=== PATIENT | male | born 1955 | race Caucasian/White ===

== ENCOUNTER → 2019-10-08 | Outpatient (CLI) | payer BC | END | disposition home or self-care (01) | LOC: LABWHC1 15:15 | PROVIDERS: ATTEND Family Medicine | DX: Z20.828 Contact with and (suspected) exposure to other viral communicable diseases (principal) | CPT/HCPCS: U0003; C9803 ==

== ENCOUNTER → 2020-01-23 | Day surgery (SDC) | payer BC ==
[2020-01-21 17:42] VITALS: BMI 32.3
[~2020-01-23] MED LIST: ALPRAZolam 0.25 MG TAB PO PRN; ALPRAZolam 0.5 MG TAB PO PRN; ASPIRIN 325 MG TAB PO STA; ATORVASTATIN 80 MG TAB PO STA; HEPARIN SODIUM 1,000 UN/ML (10ML VL) IV ONE; HEPARIN SODIUM 1,000 UN/ML (10ML VL) ONE; INSULIN NPH HUMAN ISOPHANE 100 UNIT/ML SQ SCH; INSULIN REGULAR 100 UNIT/ML VIAL SQ SCH; INSULN SQ SCH; IOPAMIDOL-370 100ML BTL INJ ONE; LIDOCAINE 1% INJ 10MG/ML (20 ML MDV) ONE; LIDOCAINE 1% INJ 10MG/ML (20 ML MDV) SQ ONE; METOPROLOL TARTRATE 12.5 MG TAB PO SCH; MIDAZOLAM 2 MG/2 ML VIAL IV ONE; MULTIVITAMINS, THERA 1 EACH TAB PO SCH; NITROGLYCERIN SL TABS 0.4 MG TAB SUBLINGUAL PRN; NON FORMULARY DRUG (Rosuvastatin 20 MG Tablet) PO SCH; SODIUM CHLORIDE 0.9% 1,000 ML IV ONE; SODIUM CHLORIDE 0.9% 1,000 ML IV SCH; SODIUM CHLORIDE 0.9% 1,000 ML in EMPTY BAG 1 BAG IV ONE; VERAPAMIL 2.5 MG/ML 2 ML AMP ONE; [UNRECOGNIZED DRUG - OTHER] SQ SCH; lisinopriL 20 MG TAB PO SCH
[2020-01-23 07:03] LABS: Glucose,Whole Blood 246 mg/dL (75-99)
[2020-01-23 07:10] VITALS: RESP 16; TEMP 98.1
[2020-01-23] MEDS: VERAPAMIL SYRINGE (5 MG/10 ML) INTRAARTER ONE ×2 (07:42→08:17)
--- NOTE | 2020-01-23 11:08 | CC ---
CARDIAC CATHETERIZATION REPORT DATE OF SERVICE: 01/23/2020 PROCEDURE: Left heart catheterization and coronary angiography. PERFORMED BY: Dr. De Alegre. Moderate conscious sedation time was 30 minutes. The patient was administered Versed. Oxygen saturation, hemodynamics and EKG were monitored closely. 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 He has type 2 diabetes, hypertension, and borderline elevation of creatinine. Because of an abnormal stress test with inferior reversible defect and a mid anterior wall partially reversible defect, he was advised cardiac cath after due discussion regarding risks, benefits, and options. PROCEDURE NOTE: Under local anesthesia and strict aseptic precautions, a 6-Panamanian introducer was placed in the right radial artery. There was a considerable difficulty advancing the introducer because of what seemed to be like a tight skin and also probably some spasm. I had used a JL3.4 and a JR4 catheter, with this I performed coronary angiography and also used the same right catheter to check LV pressures but did not do an LV gram. The catheters were taken out and while I was taking the sheath out, he had intense spasm requiring additional verapamil through the sheath and also I advanced a wire and then over the wire and a 4-Panamanian introducer and with some manipulation, I was able to finally take the sheath out. Considerable difficulty was noted. Excellent hemostasis was secured with saturation in the fingers of the right hand of 97%. Patient tolerated the procedure well without complication. Moderate conscious sedation time was 30 minutes. CARDIAC CATHETERIZATION FINDINGS: Left ventricular end-diastolic pressure was about 10 mmHg without any gradient across the aortic valve. CORONARY ANGIOGRAPHY FINDINGS: RIGHT CORONARY ARTERY: Large dominant vessel. No significant disease, distally bifurcates into PDA and PLV. The PLV has a 30% narrowing. No significant disease in the very dominant RCA that also gives off a large acute marginal branch that runs in the PDA distribution. There is also a large conus branch proximally. No significant disease in the dominant RCA. LEFT MAIN CORONARY ARTERY: This is a short patent disease-free vessel that immediately bifurcates into LAD and circumflex. Left main has mild calcification. LEFT ANTERIOR DESCENDING CORONARY ARTERY: This vessel is moderately calcified in its proximal 1/3. In the proximal portion, there is an eccentric area of about 40% narrowing which I looked at in multiple different views. There is no significant lesion, 40% proximal LAD lesion after which the caliber of the vessel improves and it gives off a large diagonal branch and several septal branches runs all the way to the apex and curves over the apex to supply the inferoapical portion of left ventricle. The proximal half of the LAD has moderate calcification. The lesion in the LAD, the proximal portion is about 40%, which I had viewed in multiple views. There is moderate calcification in that area. LEFT POSTERIOR CIRCUMFLEX CORONARY ARTERY: Technically nondominant vessel, gives off a high first obtuse marginal that has diffuse disease in it. This is unchanged from before, the first circumflex and continues as an obtuse marginal laterally, gives off 2 additional branches. Minor irregularities. No significant disease in the nondominant circumflex. Left ventriculogram was not performed. FINAL IMPRESSION: This patient has a normal filling pressures. No significant gradient across aortic valve. A right-dominant system. No significant disease in RCA or circumflex. LAD n the proximal portion is moderate to heavily calcified, has a 40% lesion, but no other significant disease. LV gram was not performed. RECOMMENDATIONS: Findings were discussed with the patient and his . I am recommending continued medical therapy with risk factor modification. He does not have any significant lesion that would require intervention. He will be discharged later on today if he remains stable. MMODL / IJN: [id number] /
[2020-01-23 20:20] VITALS: BP 152/69; PULSE 60
--- NOTE | 2020-01-25 10:25 | CDI ---
Date: 01.25.2020 CDS/Advertising Photographer Name: Bonita Kate Phone: If any questions, call Yoanna Glover Service Dispatcher at [phone] Patient Name: Tramaine Hays Admit Date 01.23.20 Discharge Date: 01.23.20 ATTENTION: The [facility] Coding Staff appreciate your assistance in clarifying documentation. Please respond to the clarification below the line at the bottom and electronically sign. The [facility] Coding staff will review the response and follow-up if needed. Please note: Queries are made part of the Legal Health Record. If you have any questions, please contact the Service Dispatcher. Dear Dr. Alegre In order to code to the greatest specificity and for the greatest reimbursement I need the following information: In you H&P under HPI you document DM 1, under problem list you document DM 2, then under impression/plan you document DM1. In you Cath report you document DM 2 Please clarify whether pt has DM type 1 or DM type 2. Thank you for your kind consideration. DM type 1 MTDD
== END ==
LOC: CATHCVL 06:29
PROVIDERS: ATTEND Internal Medicine Interventional Cardiology
DX: I25.110 Atherosclerotic heart disease of native coronary artery with unstable angina pectoris (principal); R94.39 Abnormal result of other cardiovascular function study; R07.89 Other chest pain; E10.9 Type 1 diabetes mellitus without complications; I10 Essential (primary) hypertension; I49.3 Ventricular premature depolarization; E78.2 Mixed hyperlipidemia; R94.4 Abnormal results of kidney function studies; Z79.899 Other long term (current) drug therapy; Z79.4 Long term (current) use of insulin; Z79.82 Long term (current) use of aspirin; Z82.49 Family history of ischemic heart disease and other diseases of the circulatory system
CPT/HCPCS: 93458; C1769; C1894; J2250; J2001; J1644; Q9967

== ENCOUNTER 2021-01-29 05:52 | Day surgery (SDC) | payer BC ==
[2021-01-29] MEDS ORDERED: ALPRAZolam 0.25 MG TAB PO PRN (05:55)
[2021-01-29] MEDS ORDERED: HEPARIN SODIUM,PORCINE 10,000 UNIT in SODIUM CHLORIDE 0.9% 1,000 ML IRRIGATION PRN (05:55)
[2021-01-29] MEDS ORDERED: NITROGLYCERIN SL TABS 0.4 MG TAB SUBLINGUAL PRN ×2 (05:55→09:19)
[2021-01-29] MEDS ORDERED: HEPARIN SODIUM,PORCINE 2,500 UNIT in SODIUM CHLORIDE 0.9% 250 ML IRRIGATION PRN (05:55)
[2021-01-29] MEDS ORDERED: ALPRAZolam 0.5 MG TAB PO PRN (05:55)
[2021-01-29] MEDS: SODIUM CHLORIDE 0.9% 1,000 ML in EMPTY BAG 1 BAG IV SCH ×2 (06:20→16:54)
[2021-01-29 06:24] LABS: Glucose,Whole Blood 115 mg/dL (75-99)
[2021-01-29] MEDS ORDERED: ASPIRIN 325 MG TAB PO ONE (07:00)
[2021-01-29] MEDS ORDERED: LIDOCAINE 1% INJ 10MG/ML (20 ML MDV) ONE (07:06)
[2021-01-29] MEDS ORDERED: HEPARIN SODIUM 1,000 UN/ML (10ML VL) ONE ×2 (07:24→08:54)
[2021-01-29] MEDS ORDERED: LIDOCAINE 1% INJ 10MG/ML (20 ML MDV) SQ ONE (07:29)
[2021-01-29] MEDS ORDERED: fentaNYL (PF) 50 MCG/ML 2 ML AMP ONE (07:29)
[2021-01-29] MEDS ORDERED: MIDAZOLAM 2 MG/2 ML VIAL IV ONE (07:30)
[2021-01-29] MEDS ORDERED: fentaNYL (PF) 50 MCG/ML 2 ML AMP IV ONE (07:30)
[2021-01-29] MEDS ORDERED: IOPAMIDOL-370 100ML BTL INJ ONE ×3 (07:56→08:58)
[2021-01-29] MEDS ORDERED: HYDROmorphone 0.5 MG/0.5 ML SYRINGE IVP ONE (08:05)
[2021-01-29] MEDS ORDERED: TICAGRELOR 90 MG TAB ONE (08:09)
[2021-01-29] MEDS ORDERED: TICAGRELOR 90 MG TAB PO ONE (08:15)
[2021-01-29] MEDS ORDERED: ZOLPIDEM 5 MG TAB PO PRN (09:19)
[2021-01-29] MEDS ORDERED: ATROPINE SULFATE 0.1 MG/ML 10ML SYRINGE IV PRN (09:19)
[2021-01-29] MEDS ORDERED: RX INFO: IV CONTRAST WAS GIVEN 1 EACH MISC MISCELLANE PRN (09:19)
[2021-01-29] MEDS ORDERED: MAG HYDROX/AL HYDROX/SIMETH 30 ML CUP PO PRN (09:19)
[2021-01-29] MEDS ORDERED: HYDROmorphone 0.5 MG/0.5 ML SYRINGE IVP STA (09:42)
--- NOTE | 2021-01-29 10:13 | CC ---
CARDIAC CATHETERIZATION REPORT DATE OF SERVICE: 01/29/2021. PROCEDURE: 1. Left heart catheterization and coronary angiography. 2. PTCA and stenting of a complex mid LAD and diagonal bifurcation lesion with provisional stenting. 3. Fractional flow reserve/IFR assessment of LAD. PERFORMED BY: Dr. De Alegre. SEDATION: Moderate conscious sedation time was 1 hours 49 minutes. Patient was administered Versed, fentanyl and Dilaudid. Oxygen saturation, hemodynamics and EKG were monitored closely. 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 Because of symptoms strongly suggestive of angina, I advised cardiac catheterization and possible PCI. I was concerned that the mid LAD lesion of 40% with calcification could be the culprit. He was brought in for the procedure electively after due discussion regarding risks, benefits, and options. PROCEDURE NOTE: Under local anesthesia and strict aseptic precautions, a 6-Wolof introducer was placed in the right femoral artery. Using standard right Shiva catheter, I performed selective coronary angiography of the RCA. A pigtail catheter was used to check LV pressures and I then used a guide catheter of JL4 guide catheter to perform selective coronary angiography of the left system. I noted that he had a 95% mid LAD lesion and went ahead and performed PCI. Following the procedure of PCI, I tried to take the sheath out and place an Angio-Seal. There was a lot of calcification and I had difficulty advancing the Angio-Seal and therefore I went back and placed a 6- Wolof introducer and sutured it in and we will do a manual pull in 2 hours and ACT was 247 at the conclusion of the procedure. The details of the procedure including the results and bifurcation stenting was explained to the patient and in detail. I expect he will be discharged tomorrow if he remains stable. Patient received intravenous heparin and ACT was kept between 250 and 300 for the most part. Final ACT was 247. He also received 180 mg of Brilinta orally. CARDIAC CATHETERIZATION FINDINGS: Left ventricular end-diastolic pressure was about 14-15 mmHg without any gradient across aortic valve. RIGHT CORONARY ARTERY: Dominant vessel. Minor irregularities, moderate calcification, mid lesion of 35%, distally bifurcates into PDA and PLV. PDA and PLV have minor diffuse disease but no significant obstruction and this is a very dominant RCA. LEFT MAIN CORONARY ARTERY: Short patent disease-free vessel that immediately bifurcates into LAD and circumflex. LEFT ANTERIOR DESCENDING CORONARY ARTERY: Good caliber vessel extends along the anterior wall. It gives off a small septal and diagonal branch proximally and then there is an area of 95% narrowing in the LAD and right after the stenosis is a diagonal branch that comes off which has a 60% to 70% narrowing unit at the ostium. The LAD beyond the 95% obstruction is of fair caliber, but the vessel tapers down and it supplies a sizable amount of myocardium and runs all the way distally. LEFT POSTERIOR CIRCUMFLEX CORONARY ARTERY: Nondominant vessel has minor irregularities no significant disease and no more than 30% narrowing distally bifurcates into 2 branches. LEFT VENTRICULOGRAM was not performed. IMPRESSION: This patient has a right dominant system. The filling pressures are slightly elevated. No gradient. No significant disease in the RCA or circumflex. There is a 35% narrowing in both the vessels. Mid LAD has a 95% stenosis and a 70% diagonal ostial lesion and before the 95% lesion, there is another 40% calcified area of disease in the LAD. RECOMMENDATIONS: I recommended PCI of LAD, diagonal, and proceeded to perform this in the same setting. PCI PROCEDURE DETAILS: A standard left Shiva guide catheter was used to cannulate the left coronary artery. A run-through wire was used to cross the lesion in the LAD and kept distally. Another whisper wire was used to cross the lesion in the diagonal branch and kept distally. I pre-dilated the LAD lesion with a 3.0 caliber 12 mm NC Trek balloon. I then deployed a 15 mm long 3.0 caliber Xience stent in the LAD. The proximal portion of the stent was dilated with a 3.25 caliber NC Trek balloon of 8 mm length for proximal vessel optimization. I then took the diagonal wire out and used a new J-tip Whisper wire. With this, I was able to recross the diagonal. I tried to advance a 2.5 balloon to the diagonal, but I had difficulty. I then used a 1.5 mini Trek balloon. With this, I dilated the struts and went through the struts with a 2.5 12 mm NC Trek balloon and kept distally in the diagonal. I then took a 3.0 new NC Trek balloon of 12 mm length and kept it in the LAD. Both balloons were pulled back and I performed a kissing balloon inflation for about 30 seconds. The diagonal balloon was 2.5 caliber and the LAD balloon was 3.0 caliber, both were noncompliant balloons. Excellent angiographic result was achieved. Distal to the LAD stent, there seemed to be edge dissection. After some deliberation, I went back and rewired the LAD and opened up the edge dissection with a 2.5 caliber 8 mm Xience stent, which I telescoped distal to the 3.0 stent. Excellent angiographic result was achieved. I then performed an IFR of the LAD and IFR was excellent and the results were 1.0 and 3 different readings were taken. I felt comfortable that the lesion of 40% in the proximal LAD was not significant considering the IFR was unremarkable. The patient received 180 mg of Brilinta and also received heparin with ACT kept between 250-300. The sheath was not taken out, was sutured and he was sent to the room in a stable condition. The results were discussed with the patient and and I expect he will be discharged tomorrow if he remains stable. MMODL / IJN: [id number] / ALVAREZ
[2021-01-29 10:20] LABS: Glucose,Whole Blood 68 mg/dL (75-99)
[2021-01-29 10:51] LABS: Glucose,Whole Blood 80 mg/dL (75-99)
[2021-01-29] MEDS ORDERED: amLODIPine 5 MG TAB PO STA (11:15)
[2021-01-29] MEDS ORDERED: amLODIPine 5 MG TAB ONE (11:18)
[2021-01-29] MEDS ORDERED: MIDAZOLAM 2 MG/2 ML VIAL IV STA (11:26)
[2021-01-29] MEDS ORDERED: MIDAZOLAM 2 MG/2 ML VIAL IVP ONE (11:50)
[2021-01-29 13:40] VITALS: BMI 34.1
[2021-01-29] MEDS: SODIUM CHLORIDE 0.9% 1,000 ML IV SCH (16:53)
[2021-01-29] MEDS: INSULIN REGULAR 100 UNIT/ML VIAL (IV) SQ SCH ×2 (16:54→16:55)
[2021-01-29] MEDS ORDERED: ACETAMINOPHEN TAB 325 MG TAB PO PRN (20:05)
[2021-01-29] MEDS ORDERED: lisinopriL 20 MG TAB PO SCH (21:00)
[2021-01-29] MEDS ORDERED: ATORVASTATIN 40 MG TAB PO SCH (21:00)
[2021-01-29] MEDS ORDERED: INSULIN NPH 300 UNIT/3 ML VIAL SQ SCH (21:00)
[2021-01-29] MEDS: METOPROLOL TARTRATE 12.5 MG TAB PO SCH (21:36)
[2021-01-29] MEDS: TICAGRELOR 90 MG TAB PO SCH (21:36)
[2021-01-30 01:00] VITALS: RESP 16
[2021-01-30] MEDS ORDERED: INSULIN NPH 300 UNIT/3 ML VIAL SQ SCH (07:30)
[2021-01-30] MEDS: SODIUM CHLORIDE 0.9% 1,000 ML in EMPTY BAG 1 BAG IV SCH ×2 (07:35→07:51)
[2021-01-30] MEDS: SODIUM CHLORIDE 0.9% 1,000 ML IV SCH (07:35)
[2021-01-30] MEDS: INSULIN REGULAR 100 UNIT/ML VIAL (IV) SQ SCH (07:46)
[2021-01-30] MEDS: METOPROLOL TARTRATE 12.5 MG TAB PO SCH (07:50)
[2021-01-30] MEDS: TICAGRELOR 90 MG TAB PO SCH (07:51)
[2021-01-30 08:48] LABS: Basophils # (A) 0.1 k/uL (0-0.2); Basophils % (A) 1 %; Eosinophils # (A) 0.1 k/uL (0-0.7); Eosinophils % (A) 2 %; HCT 39.8 % (39.0-53.0); HGB 13.2 gm/dL (13.0-17.5); Lymphocytes # (A) 1.7 k/uL (1.0-4.8); Lymphocytes % (A) 26 %; MCH 30.2 pg (25.0-35.0); MCV 91.5 fL (80.0-100.0); Mean Platelet Volume 8.2; Monocytes # (A) 0.4 k/uL (0-1.0); Monocytes % (A) 7 %; Neutrophils # (A) 4.3 k/uL (1.3-7.7); Neutrophils % (A) 64 %; Platelet Count 265 k/uL (150-450); RBC 4.35 m/uL (4.30-5.90); RDW 12.8 % (11.5-15.5); WBC 6.7 k/uL (3.8-10.6)
[2021-01-30] MEDS ORDERED: MULTIVITAMINS, THERA 1 EACH TAB PO SCH (09:00)
[2021-01-30] MEDS ORDERED: ASPIRIN 81 MG PO SCH (09:00)
[2021-01-30 09:01] VITALS: BP 133/75; PULSE 82; TEMP 97.6
[2021-01-30 09:11] LABS: Calcium 9.2 mg/dL (8.4-10.2); Potassium 4.6 mmol/L (3.5-5.1)
== END 2021-01-30 10:01 | disposition home or self-care (01) ==
LOC: CATHCVL 05:52 → 3SCARD 09:09 → CATHCVL 01-30 10:01
PROVIDERS: ATTEND Internal Medicine Interventional Cardiology
DX: I25.110 Atherosclerotic heart disease of native coronary artery with unstable angina pectoris (principal); I25.84 Coronary atherosclerosis due to calcified coronary lesion; I10 Essential (primary) hypertension; E78.2 Mixed hyperlipidemia; E10.9 Type 1 diabetes mellitus without complications; E78.00 Pure hypercholesterolemia, unspecified; Z82.49 Family history of ischemic heart disease and other diseases of the circulatory system; Z79.82 Long term (current) use of aspirin; Z79.4 Long term (current) use of insulin; Z79.899 Other long term (current) drug therapy
CPT/HCPCS: 93571; 93458; 92921; 80048; 85025; 87635; C1769 ×7; C9600; C1760; C1887; C1725 ×4; C1894; C1874 ×3; J2250; J2001; J3010; J1644; J1170; Q9967